=== PATIENT | female | born 1950 | race Caucasian/White ===

== ENCOUNTER 2016-12-13 09:22 | Inpatient (IN) | payer MEDICARE ==
--- NOTE | ~2016-12-13 | DS ---
Discharge Summary [facility] [address] [place]. [address] NAME: RISHI BRAGG : 52 STATUS : DIS IN PAT#: [id number] AGE: 66 ADM/REG DATE : 12/13/16 MR#: [id number] REPORT SERV DATE: 12/20/16 DICTATED BY: HAYDEN ALVARADO DATE: 12/19/16 REPORT STATUS : Draft TRANSCRIBED BY: MODL DATE: 12/19/16 ADMISSION DATE: 12/13/2016 DISCHARGE DATE: 12/19/2016 DISCHARGE DIAGNOSES: 1. Morbid obesity. 2. History of obstructive sleep apnea, not currently on BiPAP. 3. Bilateral degenerative joint disease. 4. History of breast cancer, status post chemo in 1995. 5. History of bladder cancer, currently resolved. 6. Nonischemic cardiomyopathy. 7. Systolic congestive heart failure with an ejection fraction of 10 to 15%. 8. Anemia of chronic disease. 9. Elevated TSH with a normal T4 with euthyroid sick. 10.Cutaneous candidiasis. 11.History of urinary incontinence. CONSULTANTS DURING THIS HOSPITALIZATION: Dr. Leonid Pruitt and Dr. Rich Cisneros of Cardiology. INVASIVE PROCEDURES DONE DURING THIS HOSPITALIZATION: Coronary arteriogram, selective; nonocclusive coronary artery disease with nonischemic cardiomyopathy, ejection fraction of about 10-15%. BRIEF HISTORY OF PRESENT ILLNESS: This patient is a 66-year-old female who was transferred from [facility] where she had presented with dyspnea and found to have dilated cardiomyopathy. For detailed history and physical exam, please see note dictated by Jade Brewer on 12/11/2016. HOSPITAL COURSE AT [facility]: Please refer to discharge summary dictated by Dr. Jakob Coelho on 12/13/2016. HOSPITAL COURSE AT [facility]: The patient was seen by various hospitalist physicians. I took over this patient's care on 12/17/2016. This patient was doing fairly well. She had completed her cardiac work up. Cardiology had signed off her care. We had adjusted her medications and added multiple new cardiac medications. She continued to do better. She had a LifeVest placed for monitoring due to significant reduction in ejection fraction and she will probably need to wear that for 90 days for further assessment and intervention if AICD device is necessary. She has generalized debility and was recommended to go to rehab. After waiting through the weekend and adjusting her medications, she is currently stable enough that she could be transferred to rehab. DISCHARGE DISPOSITION: To rehab. DISCHARGE ACTIVITY: Per facility. DISCHARGE DIET: Low sodium diet. Discharge Summary [facility] [address] [place]. [address] NAME: RISHI BRAGG : 52 STATUS : DIS IN PAT#: [id number] AGE: 66 ADM/REG DATE : 12/13/16 MR#: [id number] REPORT SERV DATE: 12/20/16 DICTATED BY: HAYDEN ALVARADO DATE: 12/19/16 REPORT STATUS : Draft TRANSCRIBED BY: SINDI DATE: 12/19/16 DISCHARGE MEDICATIONS: Aspirin 81 mg once daily, Lipitor 40 mg once daily, [place] cream as needed, Coreg 25 mg twice daily, Lasix 40 mg twice daily, lisinopril 10 mg once daily, potassium 10 mEq once daily, Zoloft 50 mg once daily, Aldactone 25 mg once daily, hydrocodone 5/325 one tablet every four hours p.r.n. for pain. DISCHARGE FOLLOWUP: With Dr. Samson Schroeder post rehab with Dr. Rich Cisneros for further assessment of need for an AICD device in the outpatient setting. More than 30 minutes spent planning this patient's discharge, reconciling medications, discussing rehab with the patient, and documenting this discharge. NEFTALI/SINDI Hayden Alvarado M.D. / [id number] CC: Ariadna Vazquez M.D. Vinay Deep Madan, MD
--- NOTE | ~2016-12-13 | PUL ---
[facility] [address] [place]. [address] NAME: RISHI BRAGG : 52 STATUS : DIS IN PAT#: [id number] AGE: 66 ADM/REG DATE : 12/13/16 MR#: [id number] REPORT SERV DATE: 12/20/16 DICTATED BY: KORY SWEENEY DATE: 12/19/16 REPORT STATUS : Draft TRANSCRIBED BY: MODL DATE: 12/19/16 PULMONARY FUNCTION TEST TEST: Overnight pulse oximetry on room air. TOTAL RECORDING TIME: 6 hours 12 minutes. Mean pulse of 46. Mean oxygen saturation 87.9%. Time with oxygen saturation less than 88%, 2 hours 31 minutes, 40.9% of the night. INTERPRETATION: This is an abnormal study, recommend cardiac evaluation for low pulse, otherwise the patient has significant desaturations, and upon reviewing the pulse ox data, clinical correlation is concerning for sleep apnea and recommend outpatient titration and testing for sleep apnea above and beyond testing for bradycardia in this patient. HFQ/SINDI Kory Sweeney MD / [id number] CC: Ariadna Vazquez M.D.
[~2016-12-13 09:22] MED LIST: BEN25 PO; BUMEX; CLARIT10 PO; COREG12 PO; DIMENHY50I PO; FOSAMAX70 MG PO; HYDROCHLOROT25 MG PO; MEVACOR PO; NORCO1 TA1 PO; PRILOSEC10 MG PO; SPIRIVA RESPIMAT INH; ZESTRIL20 MG PO; ZOL50 PO
[2016-12-14 06:46] LABS: BASOPHILS 0.3 %; BASOPHILS ABSOLUTE 0.02 10/3/uL (0.0-0.16); EOSINOPHILS 2.3 %; EOSINOPHILS ABSOLUTE 0.18 10/3/uL (0.0-0.53); HEMATOCRIT 35.6 % (36.0-48.0); HEMOGLOBIN 10.8 g/dL (12.0-16.0); IMMATURE GRANULOCYTES 0.4 %; IMMATURE GRANULOCYTES ABSOLUTE 0.03 10/3/uL (0.0-0.11); LYMPHOCYTES 15.2 %; LYMPHOCYTES ABSOLUTE 1.19 10/3/uL (0.67-4.30); MEAN CORPUSCULAR HEMOGLOB 25.7 pg (26.0-34.0); MONOCYTES 7.3 %; MONOCYTES ABSOLUTE 0.57 10/3/uL (0.21-1.20); NEUTROPHILS 74.5 %; NEUTROPHILS ABSOLUTE 5.86 10/3/uL (2.02-8.40); PLATELET COUNT 263 10/3/uL (150-400); RBC DISTRIBUTION WIDTH 16.6 % (12.0-16.0); RED CELL COUNT 4.21 10/6/uL (4.0-5.6); WHITE BLOOD CELLS 7.9 10/3/uL (4.5-10.5)
[2016-12-14 06:47] LABS: MANUAL DIFF NO %; MEAN CORPUS HGB CONC 30.3 g/dL (32.0-36.0); MEAN CORPUSCULAR VOLUME 84.6 fL (80-100)
[2016-12-14 07:00] LABS: A/G RATIO 0.7 (0.7-1.9); ALBUMIN 2.6 G/DL (3.5-5.0); BUN (BLOOD UREA NITROGEN) 14 MG/DL (6-23); CALCIUM, SERUM 8.1 MG/DL (8.5-10.4); CHLORIDE, SERUM 97 MMOL/L (96-112); CO2 (CARBON DIOXIDE) 32 MMOL/L (24-34); CREATININE 0.69 MG/DL (0.55-1.02); GFR AFRICAN AMERICAN 106 ML/MIN (>=60); GFR NON AFRICAN AMERICAN 91 ML/MIN (>=60); GLOBULIN 3.7 G/DL (2.5-4.1); GLUCOSE, SERUM 125 MG/DL (60-99); POTASSIUM, SERUM 3.7 MMOL/L (3.5-5.3); SGOT(AST) 11 U/L (5-40); SGPT(ALT) 18 U/L (5-65); SODIUM, SERUM 137 MMOL/L (135-148); TOTAL BILIRUBIN 0.4 MG/DL (0-1.2); TOTAL PROTEIN 6.3 G/DL (6.0-8.5)
[2016-12-14 07:01] LABS: ALKALINE PHOSPHATASE 63 U/L (45-117); PHOSPHORUS, SERUM 2.1 MG/DL (2.5-4.5)
[2016-12-14 20:21] LABS: FOLATE 9.2 NG/ML (>5.2)
[2016-12-15 04:41] LABS: BASOPHILS 0.4 %; BASOPHILS ABSOLUTE 0.03 10/3/uL (0.0-0.16); EOSINOPHILS 2.1 %; EOSINOPHILS ABSOLUTE 0.18 10/3/uL (0.0-0.53); HEMOGLOBIN 10.2 g/dL (12.0-16.0); IMMATURE GRANULOCYTES 0.2 %; IMMATURE GRANULOCYTES ABSOLUTE 0.02 10/3/uL (0.0-0.11); LYMPHOCYTES 12.4 %; LYMPHOCYTES ABSOLUTE 1.05 10/3/uL (0.67-4.30); MEAN CORPUSCULAR HEMOGLOB 24.9 pg (26.0-34.0); MEAN CORPUSCULAR VOLUME 82.9 fL (80-100); MONOCYTES 6.6 %; MONOCYTES ABSOLUTE 0.56 10/3/uL (0.21-1.20); NEUTROPHILS 78.3 %; NEUTROPHILS ABSOLUTE 6.65 10/3/uL (2.02-8.40); PLATELET COUNT 261 10/3/uL (150-400); RBC DISTRIBUTION WIDTH 16.7 % (12.0-16.0); WHITE BLOOD CELLS 8.5 10/3/uL (4.5-10.5)
[2016-12-15 04:50] LABS: MANUAL DIFF NO %
[2016-12-15 05:09] LABS: ALBUMIN 2.6 G/DL (3.5-5.0); BUN (BLOOD UREA NITROGEN) 17 MG/DL (6-23); CALCIUM, SERUM 8.1 MG/DL (8.5-10.4); CHLORIDE, SERUM 98 MMOL/L (96-112); CO2 (CARBON DIOXIDE) 35 MMOL/L (24-34); CREATININE 0.74 MG/DL (0.55-1.02); GFR AFRICAN AMERICAN 99 ML/MIN (>=60); GFR NON AFRICAN AMERICAN 85 ML/MIN (>=60); GLUCOSE, SERUM 125 MG/DL (60-99); POTASSIUM, SERUM 3.8 MMOL/L (3.5-5.3); SODIUM, SERUM 139 MMOL/L (135-148)
[2016-12-15 05:10] LABS: PHOSPHORUS, SERUM 3.1 MG/DL (2.5-4.5)
[2016-12-16 04:53] LABS: BUN (BLOOD UREA NITROGEN) 17 MG/DL (6-23); CALCIUM, SERUM 8.4 MG/DL (8.5-10.4); CHLORIDE, SERUM 96 MMOL/L (96-112); CO2 (CARBON DIOXIDE) 34 MMOL/L (24-34); GFR AFRICAN AMERICAN 105 ML/MIN (>=60); GFR NON AFRICAN AMERICAN 91 ML/MIN (>=60); GLUCOSE, SERUM 109 MG/DL (60-99); POTASSIUM, SERUM 3.9 MMOL/L (3.5-5.3); SODIUM, SERUM 139 MMOL/L (135-148)
[2016-12-17 04:55] LABS: BUN (BLOOD UREA NITROGEN) 20 MG/DL (6-23); CALCIUM, SERUM 8.6 MG/DL (8.5-10.4); CHLORIDE, SERUM 99 MMOL/L (96-112); CO2 (CARBON DIOXIDE) 31 MMOL/L (24-34); CREATININE 0.86 MG/DL (0.55-1.02); GFR AFRICAN AMERICAN 82 ML/MIN (>=60); GFR NON AFRICAN AMERICAN 71 ML/MIN (>=60); GLUCOSE, SERUM 108 MG/DL (60-99); SODIUM, SERUM 138 MMOL/L (135-148)
[2016-12-17 04:56] LABS: POTASSIUM, SERUM 4.3 MMOL/L (3.5-5.3)
[2016-12-18 06:00] LABS: BASOPHILS 0.9 %; BASOPHILS ABSOLUTE 0.06 10/3/uL (0.0-0.16); EOSINOPHILS ABSOLUTE 0.26 10/3/uL (0.0-0.53); HEMATOCRIT 37.4 % (36.0-48.0); HEMOGLOBIN 11.4 g/dL (12.0-16.0); IMMATURE GRANULOCYTES 0.3 %; IMMATURE GRANULOCYTES ABSOLUTE 0.02 10/3/uL (0.0-0.11); LYMPHOCYTES 21.2 %; LYMPHOCYTES ABSOLUTE 1.39 10/3/uL (0.67-4.30); MANUAL DIFF NO %; MEAN CORPUS HGB CONC 30.5 g/dL (32.0-36.0); MEAN CORPUSCULAR HEMOGLOB 25.4 pg (26.0-34.0); MEAN CORPUSCULAR VOLUME 83.3 fL (80-100); MEAN PLATELET VOLUME 9.6 fL (9.2-13.0); MONOCYTES 6.1 %; NEUTROPHILS 67.5 %; NEUTROPHILS ABSOLUTE 4.44 10/3/uL (2.02-8.40); PLATELET COUNT 265 10/3/uL (150-400); RBC DISTRIBUTION WIDTH 16.7 % (12.0-16.0); RED CELL COUNT 4.49 10/6/uL (4.0-5.6); WHITE BLOOD CELLS 6.6 10/3/uL (4.5-10.5)
[2016-12-18 06:14] LABS: ALBUMIN 2.7 G/DL (3.5-5.0); BUN (BLOOD UREA NITROGEN) 18 MG/DL (6-23); CALCIUM, SERUM 9.3 MG/DL (8.5-10.4); CHLORIDE, SERUM 96 MMOL/L (96-112); CO2 (CARBON DIOXIDE) 34 MMOL/L (24-34); CREATININE 0.82 MG/DL (0.55-1.02); GFR AFRICAN AMERICAN 87 ML/MIN (>=60); GFR NON AFRICAN AMERICAN 75 ML/MIN (>=60); GLUCOSE, SERUM 114 MG/DL (60-99); PHOSPHORUS, SERUM 3.6 MG/DL (2.5-4.5); POTASSIUM, SERUM 4.2 MMOL/L (3.5-5.3); SODIUM, SERUM 138 MMOL/L (135-148)
[2016-12-19 05:19] LABS: ALBUMIN 2.6 G/DL (3.5-5.0); BUN (BLOOD UREA NITROGEN) 22 MG/DL (6-23); CALCIUM, SERUM 8.9 MG/DL (8.5-10.4); CHLORIDE, SERUM 97 MMOL/L (96-112); CO2 (CARBON DIOXIDE) 34 MMOL/L (24-34); CREATININE 0.84 MG/DL (0.55-1.02); GFR AFRICAN AMERICAN 85 ML/MIN (>=60); GFR NON AFRICAN AMERICAN 73 ML/MIN (>=60); GLUCOSE, SERUM 124 MG/DL (60-99); PHOSPHORUS, SERUM 3.9 MG/DL (2.5-4.5); POTASSIUM, SERUM 3.9 MMOL/L (3.5-5.3); SODIUM, SERUM 139 MMOL/L (135-148)
[2017-03-14] MEDS ORDERED: SPIRO25 PO (16:13)
[2017-03-14] MEDS ORDERED: LIPITOR40 PO (16:14)
[2017-03-14] MEDS ORDERED: ASAB PO (16:14)
[2017-03-14] MEDS ORDERED: DSS PO (16:14)
[2017-03-14] MEDS ORDERED: COREG25 PO (16:14)
[2017-03-14] MEDS ORDERED: PRIN5 PO (16:15)
[2017-03-14] MEDS ORDERED: L40 PO (16:15)
[2017-03-14] MEDS ORDERED: KLOR-CON 1010 MEQ PO (16:15)
[2017-03-14] MEDS ORDERED: ZOFRAN4 PO (16:16)
[2017-03-15] MEDS ORDERED: LEVOTHYROXIN100 MCG PO (12:36)
[2017-03-15] MEDS ORDERED: ULTRAM50 PO (19:29)
[2017-03-15] MEDS ORDERED: BETAPACE80 PO (19:30)
== END 2016-12-19 21:06 | DRG 286 ==
LOC: CORLMH 09:22 → SSU1 10:21 → 6NO 12-14 15:24
PROVIDERS: Hospitalist; Internal Medicine; Internal Medicine Cardiovascular Disease
PROC: 4A023N7 Measurement of Cardiac Sampling and Pressure, Left Heart, Percutaneous Approach (ICD-10-PCS; principal; 2016-12-13)
PROC: B2111ZZ Fluoroscopy of Multiple Coronary Arteries using Low Osmolar Contrast (ICD-10-PCS; 2016-12-13)
PROC: B2151ZZ Fluoroscopy of Left Heart using Low Osmolar Contrast (ICD-10-PCS; 2016-12-13)
DX: I11.0 Hypertensive heart disease with heart failure (principal); J96.01 Acute respiratory failure with hypoxia; Z68.43 Body mass index [BMI] 50.0-59.9, adult; I42.0 Dilated cardiomyopathy; B19.10 Unspecified viral hepatitis B without hepatic coma; E83.39 Other disorders of phosphorus metabolism; B37.49 Other urogenital candidiasis; I25.10 Atherosclerotic heart disease of native coronary artery without angina pectoris; E66.01 Morbid (severe) obesity due to excess calories; Z23 Encounter for immunization; F32.9 Major depressive disorder, single episode, unspecified; I50.23 Acute on chronic systolic (congestive) heart failure; F41.0 Panic disorder [episodic paroxysmal anxiety]; E78.2 Mixed hyperlipidemia; B37.2 Candidiasis of skin and nail; M17.0 Bilateral primary osteoarthritis of knee; I34.0 Nonrheumatic mitral (valve) insufficiency; R32 Unspecified urinary incontinence; Z85.3 Personal history of malignant neoplasm of breast; Z85.51 Personal history of malignant neoplasm of bladder; Z92.21 Personal history of antineoplastic chemotherapy; Z90.49 Acquired absence of other specified parts of digestive tract; Z79.82 Long term (current) use of aspirin
CPT/HCPCS: 71020; 80048; 80053; 80069; 82550; 82607; 82746; 82962; 83036; 83735; 83880; 84100; 84439; 84443; 84481; 84484; 85025; 85610; 85730; 87804; 90662; 93005; 93458; 94762; 97162-GP; 97166-GO; 97530-GP; 97535-GO; 99152; 99291; A9270-GY; C1769; C1887; C1894; C8929; G0008; G8978-CL-GP; G8979-CK-GP; G8987-CK-GO; G8988-CJ-GO; J1940; J2250; J2405; J3010; Q9957; Q9967